=== PATIENT | female | born 1995 | race Caucasian/White ===

== ENCOUNTER 2021-05-18 18:05 | Observation (INO) | payer BC ==
--- NOTE | 2021-05-18 18:42 | P.HPOB ---
History of Present Illness H&P Date: 05/18/21 Chief Complaint: DVT left subclavian vein: Intrauterine at 8 weeks Brooke is a 25-year-old at 8 weeks gestation who was seen in the emergency room at [facility] earlier today and diagnosed with a subclavian vein deep vein thrombosis. She relates that she has had the pain in her left axilla/armpit area since Saturday. The pain started acutely and was quite severe worse with movement but initially she didn't notice any temperature changes or skin changes. However, over the last couple days she started noticing skin change and temperature change. She had talked to our office who advised her earlier to go to the emergency room or see her primary care provider for the armpit pain but she did not go until today. She called me to let me know the results of the emergency room visit and I advised her to come to 40 once we can do a more thorough evaluation and do coagulation studies to try and help determine why she may have had this DVT. 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 There is no other family history or history within her medical past that would explain why she would have a DVT. She does know she has never been on control pills and therefore this may be some type of familial or inherited disorder that may be better defined once the lab work is back. She was started on Lovenox weight-based 1 mg/kg subcu every 12 at [place] and she received 1 dose of same. We will consult hematology for other recommendations. This may very well be an appropriate option until the clot has dissipated eye. I did inform her that she would be on some type of anticoagulant throughout the and likely for up to 3 months after the . She will also need to likely see maternal medicine but that is some thickening be arranged moving forward. She has had no ultrasounds during the thus far so we will obtain an ultrasound to verify viability. Should that be a nonviable this will also allow us to do some type of thrombolytic therapy if needed to help resolve the deep vein thromboses. We'll also were a chest x-ray to verify no bony abnormalities that night be occluding or pinching her subclavian vein. I did speak with both she and her at length on my concerns and they've agreed for admission through [facility] and if we are able to feel comfortable with her anticoagulation status likely be able to be discharged tomorrow pending hematology consultation. All of the questions are answered for her at this time. I did review the ultrasound report from [facility] which states that they could see a clot in the deep vein of the subclavian and therefore at this time no further radiologic studies regarding this will be ordered. On physical exam vital signs are stable and afebrile. There is a proximally 10 mmHg increase in her blood pressure from left side to right side. She is mildly tachycardic with heart rate in the 1 teens. Her heart is regular, lungs are clear, extremities are without pain other than the left upper extremity which is colder to the touch all the way from her armpit down to her fingers as well as blanched in the skin. Assessment 8 week with deep vein thrombosis of the left subclavian vein Plan hematology consultation #2 chest x-ray for evaluation of bony prominences #3 ultrasound of the fetus to verify viability number for continued anticoagulation #5 laboratory studies including protein C and S, factor V Leiden, anti-thrombin 3, at all. Exam Osteopathic Statement: *. No significant issues noted on an osteopathic structural exam other than those noted in the History and Physical/Consult.
--- NOTE | 2021-05-18 20:23 | P.CONS ---
History of Present Illness - Reason for Consult Consult date: 05/18/21 Left subclavian DVT in first trimester - History of Present Illness The patient is a 25-year-old white female, with no prior known medical problems. The patient is in her eighth week of , with her LMP being in 02/14. She noted some pain and swelling in her left upper extremity, about 4 days ago. He stated that this was aching in nature, and impeded her in working with her left arm. Over the last day, she noted some dusky discoloration of the left upper extremity and warmth. She therefore went into the emergency room at [facility], with Dopplers showing left subclavian DVT. The patient was then transferred here and evaluated by STAFF REGISTERED NURSE, with consult placed. The patient denied any prior history of arterial or venous thrombosis. No history of any miscarriages. She states that she was told that her sister had a seizure in transfer worker that was due to a clot with testing apparently showing some genetic condition. However she is not aware of any further details. No history of any unusual bleeding or bruising previously. She denied using any hormonal contraception prior to this . She denied any history of coronavirus infection. Review of Systems Constitutional: Denies chills, Denies fever Eyes: denies blurred vision, denies pain Ears: deny: decreased hearing, ear discharge, earache, tinnitus Ears, nose, mouth and throat: Denies headache, Denies sore throat Cardiovascular: Denies chest pain, Denies shortness of breath Respiratory: Denies cough Gastrointestinal: Denies abdominal pain, Denies diarrhea, Denies nausea, Denies vomiting Genitourinary: Denies dysuria, Denies hematuria Menstruation: Reports as per HPI, Reports amenorrhea Musculoskeletal: Reports as per HPI, Reports limitation of motion Integumentary: Reports color changes, Reports darkening of skin Neurological: Denies numbness, Denies weakness Psychiatric: Denies anxiety, Denies depression Endocrine: Denies fatigue, Denies weight change Hematologic/Lymphatic: Reports as per HPI Past Medical History History of Any Multi-Drug Resistant Organisms: None Reported Smoking Status: Never smoker Medications and Allergies Home Medications Medication Instructions Recorded Confirmed Type Enoxaparin [Lovenox] 85 mg SQ Q12H 05/18/21 05/18/21 History Pnv No.95/Ferrous Fum/Folic AC 1 each PO DAILY 05/18/21 05/18/21 History [ Multivitamin Tablet] Allergies Allergy/AdvReac Type Severity Reaction Status Date / Time amoxicillin Allergy Rash/Hives Verified 05/18/21 18:44 Physical Exam Vitals: Intake and Output 05/18/21 05/18/21 05/18/21 06:59 14:59 22:59 Other: Weight 85.729 kg - Constitutional General appearance: no acute distress - EENT Eyes: EOMI, PERRLA ENT: hearing grossly normal, normal oropharynx - Neck Neck: no lymphadenopathy Thyroid: bilateral: normal size - Respiratory Respiratory: bilateral: CTA - Cardiovascular Rhythm: regular Heart sounds: normal: S1, S2 - Gastrointestinal General gastrointestinal: normal bowel sounds, soft - Integumentary Mildly dusky coloration of left lower extremity - Neurologic Neurologic: CNII-XII intact - Musculoskeletal Left upper Extremity circumference Greater than right. Strength is normal. Radial pulses intact - Psychiatric Psychiatric: A&O x's 3, appropriate affect Results Comments: Left upper extremity Doppler result as noted in OB H&P Actual study report requested from [facility] Assessment and Plan (1) DVT (deep vein thrombosis) in Narrative/Plan: The patient is Presenting with left subclavian deep vein thrombosis in the first trimester of her first . She has no evidence of any vascular compromise. She has no signs or symptoms concerning for pulmonary embolus. - Case was discussed in detail with STAFF REGISTERED NURSE. It was recommended that the patient be started on treatment with Lovenox for dose, 1 mg/kg subcu every 12 hours. She can be discharged on the same. She can be reevaluated outpatient in about 5-6 weeks and doing well could potentially be switched to a 1.5 mg/kg subcu daily dose for convenience. - We discussed the choice of anticoagulant, and rationale for the same with the patient. - DVT during would typically be considered a provoked event. Therefore a limited duration of anticoagulation would be recommended usually. At this time the plan would be to anticoagulate for about 6-8 weeks postdelivery at least. - While would be considered a provoking factor, upper extremity DVT in the first trimester would be quite unusual to be caused by alone. Therefore this raises the possibility of an underlying predisposition. The family history is overall nonspecific. However based on her history it is quite reasonable to consider hypercoagulable workup. Several tests in this regard have been ordered. The patient was advised that the results will not change her current management, but may have implications for the future, especially for her family if she is found to have a genetic predisposition. - Okay to discharge from our standpoint whenever cleared by Dr. Marshall Current Visit: Yes Status: Acute Code(s): O22.30 - DEEP PHLEBOTHROMBOSIS IN , UNSPECIFIED TRIMESTER SNOMED Code(s): 10618854
--- NOTE | 2021-05-18 20:42 | US ---
EXAMINATION TYPE: Transabdominal DATE OF EXAM: 05/18/2021 8:13 PM COMPARISON: NONE CLINICAL HISTORY: viability (mom has DVT) need to assess for treatme. Viability, mom has DVT within l eft arm. . EXAM PERFORMED: Transabdominal (TA) EXAM MEASUREMENTS: GESTATIONAL AGE / DATING Physician Established: Not yet established. Dates by LMP: ( 8 weeks/1 day) EDC: 12/27/2021 Dates by First Scan: This is first scan. Dates by Current Scan for: (7 weeks/4 days) EDC: 12/31/2021 MATERNAL ANATOMY Uterus: 9.7 x 6.3 x 5.5 cm. Anteverted. Possible septate or bicornuate uterus? Hyperechoic area visua lized toward the right of uterus. Right Ovary: 3.9 x 1.7 x 1.6 cm. Left Ovary: 2.3 x 1.7 x 2.0 cm. Post CDS / Adnexa: Appear wnl. Presence of free fluid: None seen. Presence of corpus luteal cyst: Not seen. Presence of subchorionic bleed: Not seen. GESTATION / SURVEY CRL: 1.31 cm. (7 weeks/4 days) Yolk Sac (normal less than 6mm): 3 mm. Heart Rate: 166 bpm Rhythm: Normal IUP: Viable IUP Date of LMP: 03/22/2021 Beta HcG (if available): Not available. Exam slightly limited due to body habitus and early gestation. IMPRESSION: The ultrasound gestational age is 7 weeks and 4 days. Possible bicornuate uterus.
--- NOTE | 2021-05-18 20:45 | XR ---
EXAMINATION TYPE: XR chest 2V DATE OF EXAM: 05/18/2021 COMPARISON: NONE HISTORY: Left arm blood clot TECHNIQUE: 2 views FINDINGS: There is no heart failure nor confluent pneumonic infiltrate. There is slight blunting left costophrenic angle. There are no hilar masses. Exam limited by patient's size. Bony thorax is intact . IMPRESSION: There is some minimal pleural reaction left lung base. Normal heart.
[2021-05-19] MEDS: ENOXAPARIN 80 MG/0.8 ML SYRINGE SQ SCH ×2 (00:03→10:18)
[2021-05-19 04:55] LABS: Cardiolipin Ab IgG Interp NEGATIVE (NEGATIVE); Cardiolipin Ab IgM Interp NEGATIVE (NEGATIVE); Cardiolipin IgM Antibody <1.5 U/mL
[2021-05-19 08:16] VITALS: BP 123/75; PULSE 97; RESP 14; TEMP 98.5
[2021-05-19] MEDS ORDERED: PRENATAL VIT-IRON-FOLIC ACID 1 EACH CAP PO SCH (09:00)
--- NOTE | 2021-05-19 11:01 | P.DS ---
Providers Date of admission: 05/18/21 19:45 Expected date of discharge: 05/19/21 Attending physician: Elan Marshall Consults: 05/18/21 19:00 Consult Physician Urgent Consulting Provider: Georgi Paulino Consult Reason/Comments: dvt left subclavian vein: 8 weeks Do you want consulting provider notified?: Already Contacted Primary care physician: Stated None Hospital Course: This is a 25-year-old female 1 para 0 at approximately 8 weeks who presented with a left subclavian DVT diagnosed at [facility]. Please see history and physical for details of patient's admission. She has been seen in consultation by Dr. Paulino and has been started on Lovenox. Her has been instructed on how to give the Lovenox to her. She has a 10 day supply currently. She does have an appointment with Dr. Welch this . All questions are answered. The patient is instructed to call the office or return to the hospital if any severe symptoms. Patient Condition at Discharge: Stable Plan - Discharge Summary Discharge Rx Participant: No New Discharge Prescriptions: No Action Enoxaparin [Lovenox] 85 mg SQ Q12H Pnv No.95/Ferrous Fum/Folic AC [ Multivitamin Tablet] 1 each PO DAILY Discharge Medication List Enoxaparin [Lovenox] 85 mg SQ Q12H 05/18/21 [History] Pnv No.95/Ferrous Fum/Folic AC [ Multivitamin Tablet] 1 each PO DAILY 05/18/21 [History] Follow up Appointment(s)/Referral(s): Georgi Paulino MD [STAFF PHYSICIAN] - 6 Weeks (pls have pt call office [phone] or [phone] for appt ( to f/u in 6 wks) on 05/22/21) Sharath Welch MD [STAFF PHYSICIAN] - 05/25/21 Discharge Disposition: HOME SELF-CARE
[2021-05-22 12:25] LABS: APTT 71 Sec(s) (<43); APTT 1:1 Mix 59 Sec(s) (<43); DRVVT 1:1 Mix 44 Sec(s) (<44); Dilute Russell Viper Venom 56 Sec(s) (<44); Hexagonal Phase Neutralization Positive (Negative)
[2021-05-23 10:40] LABS: Anti-Thrombin III Activity 96 % (79-109); Protein C (Activity) 90 % (71-138)
== END 2021-05-19 11:15 | disposition home or self-care (01) ==
LOC: FBPOP 18:05 → 4FBP 19:45
PROVIDERS: ADMIT Obstetrics & Gynecology; ATTEND Obstetrics & Gynecology
DX: O22.31 Deep phlebothrombosis in pregnancy, first trimester (principal); I82.B12 Acute embolism and thrombosis of left subclavian vein; Z3A.08 8 weeks gestation of pregnancy; Z20.822 Contact with and (suspected) exposure to COVID-19; Z88.0 Allergy status to penicillin
CPT/HCPCS: 99213; 96372; 85303; 85306; 86146; 85730; 85613; 85732; 85598; 85300; 81241; 86147; 87635; 71046; 76801; G0378; J1650; S0197

== ENCOUNTER → 2021-08-03 | Outpatient (CLI) | payer BC ==
--- NOTE | 2021-08-03 09:05 | US ---
EXAMINATION TYPE: US venous doppler duplex UE LT DATE OF EXAM: 08/03/2021 COMPARISON: NONE CLINICAL HISTORY: M79.622 PAIN IN LT UPPER LIMB. History of Prior DVT in left arm. SIDE PERFORMED: Left arm Left Arm: Negative for DVT No DVT seen at this time. IMPRESSION: Grayscale, color doppler, spectral doppler imaging performed of the deep veins of the upper extremiti es. There is normal flow, compressibility and vascular waveforms.
== END | disposition home or self-care (01) ==
LOC: RADUSWWP 08:00
PROVIDERS: ATTEND Internal Medicine Hematology & Oncology
DX: I82.729 Chronic embolism and thrombosis of deep veins of unspecified upper extremity (principal); M79.622 Pain in left upper arm

== ENCOUNTER 2021-12-20 06:00 | Inpatient (IN) | payer BC ==
[2021-12-20] MEDS ORDERED: DINOPROSTONE 10 MG INSERT.ER VAGINAL ONE (16:10)
[2021-12-20 16:49] LABS: INR 0.9 (<1.2); Partial Thromboplastin Time 23.5 sec (22.0-30.0)
[2021-12-20 17:23] LABS: Basophils % (A) 0 %; Eosinophils # (A) 0.1 k/uL (0-0.7); Eosinophils % (A) 0 %; HCT 34.5 % (34.0-46.0); HGB 11.1 gm/dL (11.4-16.0); Lymphocytes # (A) 1.9 k/uL (1.0-4.8); Lymphocytes % (A) 15 %; MCH 29.6 pg (25.0-35.0); MCHC 32.3 g/dL (31.0-37.0); MCV 91.9 fL (80.0-100.0); Mean Platelet Volume 11.1; Monocytes # (A) 0.8 k/uL (0-1.0); Monocytes % (A) 7 %; Neutrophils # (A) 9.6 k/uL (1.3-7.7); Neutrophils % (A) 77 %; Platelet Count 138 k/uL (150-450); RBC 3.75 m/uL (3.80-5.40); RDW 13.5 % (11.5-15.5); WBC 12.6 k/uL (3.8-10.6)
--- NOTE | 2021-12-20 17:39 | P.HPOB ---
History of Present Illness H&P Date: 12/20/21 Chief Complaint: History of subclavian thrombosis for induction of labor This patient is a pleasant 26-year-old 1 para 0 female estimated date of confinement 12/29/2021 estimated gestational age 38-5/7 weeks who presents for delivery secondary to history of subclavian thrombosis and anticoagulation therapy. Patient's history is such that she developed a subclavian DVT and the early first trimester. She was subsequently seen by Dr. Paulino and placed on full anticoagulation with Lovenox. She also saw maternal medicine and recommendations were to convert to heparin at 36 weeks with delivery after 37-38 weeks. Patient is discontinued her heparin approximately 24 hours ago. She was converted to low-dose heparin 3 times a day at 36 weeks. Patient's otherwise has been uncomplicated. Patient's cervix is unfavorable therefore we'll proceed with two-stage induction at this time. Review of Systems Gastrointestinal: Reports indigestion Genitourinary: Reports Menstruation: Reports amenorrhea Past Medical History Past Medical History: Deep Vein Thrombosis (DVT) Additional Past Medical History / Comment(s): Left subclavian thrombus History of Any Multi-Drug Resistant Organisms: None Reported Additional Past Surgical History / Comment(s): wisdom tooth Past Anesthesia/Blood Transfusion Reactions: No Reported Reaction Past Psychological History: No Psychological Hx Reported Smoking Status: Never smoker Past Alcohol Use History: None Reported Past Drug Use History: None Reported - Past Family History Mother Family Medical History: Thyroid Disorder Medications and Allergies Home Medications Medication Instructions Recorded Confirmed Type Pnv No.95/Ferrous Fum/Folic AC 1 each PO DAILY 05/18/21 05/18/21 History [ Multivitamin Tablet] Heparin Sodium,Porcine [Heparin Q8HR 12/20/21 History Sodium] Allergies Allergy/AdvReac Type Severity Reaction Status Date / Time amoxicillin Allergy Rash/Hives Verified 12/20/21 16:10 Exam Vital Signs Temp Pulse Resp BP Pulse Ox 12/20/21 15:55 98.3 F 83 16 133/83 98 Intake and Output 12/20/21 12/20/21 12/20/21 06:59 14:59 22:59 Other: Weight 93.44 kg - OBG Physical Exam Abdomen: bowel sounds normal, no diffuse tenderness, no bruit present, no guarding noted, no hepatomegaly, no splenomegaly, no mass Vulva: both: normal Vagina: normal moisture, no discharge Cervix: no lesion (Cervix is closed and thick), no discharge Uterus: enlarged (Fundal height 39 cm) Results labs show she is A positive, rubella immune, RPR nonreactive, hepatitis B is negative, HIV is nonreactive, Glucola was normal, group B strep was negati ve, most recent ultrasound showed 6 lbs. 4 oz. that was on November 28. Result Diagrams: 12/20/21 16:20 Abnormal Lab Results - Last 24 Hours (Table) 12/20/21 Range/Units 16:20 WBC 12.6 H (3.8-10.6) k/uL RBC 3.75 L (3.80-5.40) m/uL Hgb 11.1 L (11.4-16.0) gm/dL Plt Count 138 L (150-450) k/uL Neutrophils # 9.6 H (1.3-7.7) k/uL Assessment and Plan Assessment: This is a pleasant 26-year-old 1 para 0 female 38-5/7 weeks who presents to labor and delivery for induction of labor secondary to history of subclavian vein thrombosis during this . Patient has stopped her heparin approximately 24 hours ago and coagulation factors were normal. Plan is to place Cervidil and proceed with induction of labor. In discussion with maternal- medicine and hematology, plan is for anticoagulation with subcu Lovenox 12 hours if a vaginal delivery or 24 hours if a . This point we're anticipating a vaginal delivery. (1) 38 weeks gestation of Current Visit: Yes Status: Acute Code(s): Z3A.38 - 38 WEEKS GESTATION OF SNOMED Code(s): 23358711 (2) DVT (deep vein thrombosis) in Current Visit: No Status: Acute Code(s): O22.30 - DEEP PHLEBOTHROMBOSIS IN , UNSPECIFIED TRIMESTER SNOMED Code(s): 75182156
[2021-12-21] MEDS: BUTORPHANOL 1 MG/ML 1 ML VIAL IV PRN ×2 (01:17→05:08)
[2021-12-21] MEDS ORDERED: METHYLERGONOVINE 0.2 MG/ML 1 ML AMP IM PRN (04:37)
[2021-12-21] MEDS ORDERED: LIDOCAINE 0.5% (PF) 5 MG/ML (50 ML SDV) SQ PRN (04:37)
[2021-12-21] MEDS ORDERED: CARBOPROST TROMETHAMINE 250 MCG/ML 1 ML AMP IM PRN (04:37)
[2021-12-21] MEDS ORDERED: TERBUTALINE 1 MG/ML VIAL SQ PRN (04:37)
[2021-12-21] MEDS ORDERED: OXYTOCIN 30 UNITS/500 ML NS 30 UNIT in SALINE 1 500ML.BAG IV SCH ×2 (04:37→23:45)
[2021-12-21] MEDS ORDERED: OXYTOCIN 10 UNIT/ML 1 ML VIAL IM PRN (04:37)
[2021-12-21] MEDS: LACTATED RINGERS 1,000 ML IV SCH ×4 (05:11→22:51)
--- NOTE | 2021-12-21 06:01 | P.PN ---
Progress Note - Text Progress Note Date: 12/21/21 Cervix is 2 cm and soft and -2 station. heart tones are category 1. Artificial rupture membranes was done for clear fluid. Plan is Pitocin induction of labor and anticipate vaginal delivery
[2021-12-21] MEDS ORDERED: ROPIVACAINE 100 MG, fentaNYL (PF). 200 MCG in SODIUM CHLORIDE 0.9% 76 ML EPIDURAL ONE (10:01)
[2021-12-21] MEDS ORDERED: CITRIC ACID-SODIUM CITRATE 15 ML CUP PO ONE (22:32)
--- NOTE | 2021-12-21 22:42 | P.PN ---
Progress Note - Text Progress Note Date: 12/21/21 Patient's progress to 9 cm without further dilation and now cervix is swelling. Despite adequate labor and has been no further significant change therefore after discussion with the patient and her were going to proceed with section for delivery. Patient understands surgery and risks. Consent is obtained.
[2021-12-21] MEDS ORDERED: ONDANSETRON 4 MG/2 ML VIAL ONE (22:57)
[2021-12-21] MEDS ORDERED: SODIUM CHLORIDE 0.9% 100 ML BAG ONE (22:57)
[2021-12-21] MEDS ORDERED: ceFAZolin 1,000 MG VIAL ONE (22:57)
[2021-12-21] MEDS ORDERED: MORPHINE SULFATE (PF) 0.3 MG/0.3 ML SYR ONE (22:57)
[2021-12-21] MEDS ORDERED: OXYTOCIN 30 UNITS/500 ML NS BAG IV ONE (22:57)
[2021-12-21] MEDS ORDERED: ZOLPIDEM 5 MG TAB PO PRN (23:46)
[2021-12-21] MEDS ORDERED: METOCLOPRAMIDE 5 MG/ML 2 ML VIAL IVP PRN (23:46)
[2021-12-21] MEDS ORDERED: ONDANSETRON 4 MG/2 ML VIAL IVP PRN (23:46)
[2021-12-21] MEDS ORDERED: LANOLIN CREAM 5 GM TUBE TOPICAL PRN (23:46)
[2021-12-21] MEDS ORDERED: SIMETHICONE 80 MG CHEWABLE PO PRN (23:46)
[2021-12-21] MEDS ORDERED: diphenhydrAMINE 50 MG/ML 1 ML VIAL IVP PRN (23:46)
[2021-12-21] MEDS ORDERED: diphenhydrAMINE 25 MG CAP PO PRN (23:46)
[2021-12-21] MEDS ORDERED: NALOXONE 0.4 MG/ML 1 ML VIAL IV PRN (23:46)
--- NOTE | 2021-12-22 00:07 | P.OP ---
Date of Procedure: 12/21/21 Preoperative Diagnosis: #1: 38-5/7 week intrauterine . #2: History of subclavian vein thrombosis #3: Cephalopelvic dystocia Postoperative Diagnosis: Same Procedure(s) Performed: Primary low transverse section Anesthesia: spinal Surgeon: Sharath Welch Dandy Tender #1: Ramya Teixeira Estimated Blood Loss (ml): 670 Pathology: other (Placenta) Condition: stable Disposition: floor Indications for Procedure: Please see dictated H&P for intimate details of this patient's admission. Brief summary this is a pleasant 26-year-old 1 para 0 female 38-5/7 weeks gestation admitted for induction of labor due to subclavian vein thrombosis this . Patient is admitted last evening and has Cervidil placed.'s morning patient was 1-2 cm dilated has artificial rupture membranes for clear fluid. Labor is induced with Pitocin per protocol. She progresses quite slowly but does get to 9 cm dilated at this time the anterior cervix. The head does not move beyond 0 to +1 station. At this time patient's also having a lot of vulvar swelling. I discussed with the patient and her whether we should continue with labor proceed with delivery by section and wishes to proceed by section. Patient does understand the surgery and risks and risks of infection, bleeding, possible injury bowel, bladder, vessels, and/or other organs. All the patient's questions are answered written consent is obtained. Operative Findings: This is a vigorous viable male Apgars 9 and 10 delivery time was 2315 hrs. Description of Procedure: This patient has a Mosqueda catheter placed to straight drain. She is subsequently taken to the operating room where the epidural catheter is removed and spinal anesthetic is administered without incident. With an adequate level of anesthesia she has abdominal prep and drape. Scalpels and taken Pfannenstiel skin incision is then made. A second scalpel is taken down the fascia the fascia scored with a knife. Fascial incision extended bilaterally using the Mcfarland scissors. Fascia is dissected off the rectus muscles sharply. Rectus muscles are the peritoneum identified and entered sharply. Peritoneal incision extended superior and inferior without difficulty. Bladder blade is then placed. Bladder peritoneum was taken sharply off the lower uterine segment. Scalpels and taken a low transverse uterine incision is made. Using a hemostat I into the uterine cavity bluntly and there is loss of clear fluid. This incision is extended bluntly. is felt felt to be left occiput transverse. 's head was guided through the incision and delivered with fundal pressure. Mouth and nares are bulb suctioned. Is no evidence of a nuchal cord. With more fundal pressure deliver the rest this infant's body. This is a vigorous viable male infant Apgars are 9 and 10 delivery time was 2315 hrs. After delivery of the infant the umbilical cord is doubly clamped and cut appears to be trivascular. The placenta is then manually extracted intact. Uterus is then externalized and the uterine incision is demarcated with Monsalve clamps. Uterine incision is then closed using 0 Vicryl running locked fashion 2 layers. Additional [id number] stitches are placed for added hemostasis. Bladder peritoneum was then closed using a 3-0 Vicryl. Excess fluid is removed from the abdomen and pelvis. Uterus placed back into the abdomen. The parietal peritoneum was then identified and closed using 0 Vicryl running fashion. Rectus muscles reapproximated in 0 Vicryl interrupted fashion. Fascial incision is then closed using a 0 PDS running fashion. Fascial incision is intact and hemostatic. Subcutaneous tissues and closed using a 3-0 Vicryl. Skin is and closed using wanda. All counts are correct 3. There are no complications. Infant and mother are stable and taken to the birthing suite in satisfactory condition.
[2021-12-22] MEDS: IBUPROFEN 600 MG TAB PO SCH ×4 (02:16→23:47)
[2021-12-22] MEDS: METHYLERGONOVINE 0.2 MG TAB PO SCH ×3 (04:11→15:56)
[2021-12-22] MEDS: ACETAMINOPHEN TAB 500 MG TAB PO SCH ×2 (04:11→18:19)
--- NOTE | 2021-12-22 05:50 | P.PNOBGPC ---
Subjective - Subjective Patient reports: Reports appetite normal, Reports voiding normally, Reports pain well controlled, Reports ambulating normally : doing well Objective - Vital Signs Latest vital signs: Vital Signs Temp Pulse Resp BP Pulse Ox 12/22/21 04:00 98.1 F 83 16 104/56 12/22/21 02:15 92 16 133/83 98 12/22/21 01:45 67 16 129/73 99 12/22/21 01:15 67 16 140/69 98 12/22/21 01:00 71 18 139/65 98 12/22/21 00:45 82 18 146/61 97 12/22/21 00:30 87 16 141/56 98 12/22/21 00:15 97.4 F L 82 16 129/79 98 Intake and Output 12/21/21 12/21/21 12/22/21 14:59 22:59 06:59 Output Total 567 634 4186 Balance -400 -500 -1570 Output: Urine 400 500 800 Straight 500 Estimated Blood Loss 630 Output, Quantitative 140 Blood Loss Other: Voiding Method Indwelling Catheter - Exam Lungs: bilateral: normal Chest: Normal S1, Normal S2 Extremities: Present: normal Abdomen: Present: normal appearance, soft. Absent: distention, tenderness Incision: Present: normal, dry, intact Uterus: Present: normal, firm Assessment and Plan Assessment: Postoperative day #1. Vital signs are stable she is afebrile. Uterus is firm nontender and she is having normal lochia. CBC is pending. Plan today is to discontinue her catheter, encourage ambulation, advance patient's diet, check a CBC, and continue routine postoperative care. I did discuss with the special makeup fx artist instructor yesterday plan is to restart her Lovenox 80 mg subcu twice a day. Per current recommendations await at least 24 hours that she's had a therefore we'll start this at 0400 hrs. tomorrow morning and then change to a 8 AM 8 PM schedule. Patient's bleeding at this time is normal. (1) 38 weeks gestation of Current Visit: Yes Status: Acute Code(s): Z3A.38 - 38 WEEKS GESTATION OF SNOMED Code(s): 13620508 (2) DVT (deep vein thrombosis) in Current Visit: No Status: Acute Code(s): O22.30 - DEEP PHLEBOTHROMBOSIS IN , UNSPECIFIED TRIMESTER SNOMED Code(s): 15623416
[2021-12-22 07:03] LABS: Basophils % (A) 0 %; Eosinophils # (A) 0.1 k/uL (0-0.7); Eosinophils % (A) 0 %; HCT 34.9 % (34.0-46.0); HGB 11.3 gm/dL (11.4-16.0); Lymphocytes # (A) 1.5 k/uL (1.0-4.8); Lymphocytes % (A) 6 %; MCH 29.8 pg (25.0-35.0); MCHC 32.4 g/dL (31.0-37.0); MCV 91.9 fL (80.0-100.0); Monocytes # (A) 1.2 k/uL (0-1.0); Monocytes % (A) 5 %; Neutrophils # (A) 22.6 k/uL (1.3-7.7); Neutrophils % (A) 88 %; Platelet Count 136 k/uL (150-450); RDW 13.5 % (11.5-15.5); WBC 25.6 k/uL (3.8-10.6)
[2021-12-22 07:17] LABS: Mean Platelet Volume 11.1
[2021-12-22] MEDS: SENNOSIDES-DOCUSATE SODIUM 1 EACH TAB PO SCH ×2 (08:17→20:43)
--- NOTE | 2021-12-22 10:06 | P.PN ---
Progress Note - Text Progress Note Date: 12/22/21 Postop day 1 from under spinal anesthesia with intrathecal morphine given for postop pain management. Patient is doing well. Pain is well controlled. On visual analog scale 4/10 Mild itching present No nausea or vomiting reported. No Headache or weakness and numbness in the legs. No complications from spinal anesthesia.
[2021-12-23] MEDS: LACTATED RINGERS 1,000 ML IV SCH (00:48)
[2021-12-23] MEDS: ENOXAPARIN 80 MG/0.8 ML SYRINGE SQ SCH ×2 (03:55→20:18)
[2021-12-23] MEDS: ACETAMINOPHEN TAB 500 MG TAB PO SCH ×5 (03:58→20:18)
[2021-12-23 05:37] LABS: Basophils % (A) 0 %; Eosinophils # (A) 0.4 k/uL (0-0.7); Eosinophils % (A) 2 %; HCT 32.4 % (34.0-46.0); HGB 10.7 gm/dL (11.4-16.0); Lymphocytes # (A) 2.2 k/uL (1.0-4.8); Lymphocytes % (A) 14 %; MCH 31.1 pg (25.0-35.0); MCHC 32.9 g/dL (31.0-37.0); MCV 94.4 fL (80.0-100.0); Mean Platelet Volume 10.9; Monocytes # (A) 0.8 k/uL (0-1.0); Monocytes % (A) 5 %; Neutrophils # (A) 12.2 k/uL (1.3-7.7); Neutrophils % (A) 77 %; Platelet Count 140 k/uL (150-450); RBC 3.44 m/uL (3.80-5.40)
[2021-12-23] MEDS: IBUPROFEN 600 MG TAB PO SCH ×3 (06:33→23:25)
[2021-12-23] MEDS: SENNOSIDES-DOCUSATE SODIUM 1 EACH TAB PO SCH ×2 (08:40→21:33)
--- NOTE | 2021-12-23 11:21 | P.PNOBGPC ---
Subjective - Subjective Principal diagnosis: Status post primary low transverse section postoperative day #2 Interval history: Patient is doing well. She is ambulating. She is passing flatus and bowel movement. Her pain is fairly well controlled. Lochia has been minimal. She is breast-feeding. Patient reports: Reports appetite normal, Reports voiding normally, Reports pain well controlled, Reports ambulating normally : doing well, nursing well Objective - Vital Signs Latest vital signs: Vital Signs Temp Pulse Resp BP Pulse Ox 12/23/21 08:36 98.0 F 87 16 117/70 97 12/23/21 00:00 98.3 F 148 H 55 H 12/22/21 20:00 97.5 F L 65 16 118/85 100 12/22/21 16:00 98.3 F 89 16 126/82 12/22/21 12:00 98.2 F 88 16 128/72 Intake and Output 12/22/21 12/23/21 12/23/21 22:59 06:59 14:59 Intake Total 960 Balance 960 Intake: Oral 960 Other: Voiding Method Indwelling Catheter # Voids 1 2 - Exam Extremities: Present: normal. Absent: tenderness, edema Abdomen: Present: normal appearance, soft (Positive bowel sounds 4). Absent: distention, tenderness Incision: Present: normal, dry, intact. Absent: erythematous Uterus: Present: normal, firm. 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 Continue Lovenox. Bleeding has been minimal.
[2021-12-24] MEDS: IBUPROFEN 600 MG TAB PO SCH ×2 (05:55→08:40)
[2021-12-24] MEDS: ENOXAPARIN 80 MG/0.8 ML SYRINGE SQ SCH (08:39)
[2021-12-24] MEDS: SENNOSIDES-DOCUSATE SODIUM 1 EACH TAB PO SCH (08:40)
[2021-12-24 08:52] VITALS: RESP 16
--- NOTE | 2021-12-24 10:35 | P.DS ---
Providers Date of admission: 12/20/21 15:51 Expected date of discharge: 12/24/21 Attending physician: Sharath Welch Primary care physician: Stated None Hospital Course: This is a 26 y.o. female 1 para 0 at 38-5/7 weeks, who presented for induction of labor. She ended up with a primary low transverse section on 12/21/2021 and delivered a viable male infant with scores of 9 at 1 minute and 10 at 5 minutes and weight of 7 lbs. 15 oz. Please see history and physical and operative note for details of patient's admission. Her course has been essentially uncomplicated. She was restarted on William enox due to history of a subclavian DVT. She has had no increase in bleeding since restarting. Lochia is minimal, pain is well-controlled. She is passing flatus and bowel movement. She is breast-feeding. Vital signs are stable. Abdomen is soft with fundus firm and nontender. Bowel sounds are present 4. Incision is clean dry and intact. Extremities show negative Homans. Impression is status post primary low transverse section postoperative day #3. Plan is to discharge home today. Routine postoperative and instructions are given. She will continue her Lovenox as she did prior to . She has been given a prescription for ibuprofen and oxycodone by Dr. Welch. She is advised to follow-up in the office in approximately one week for a postoperative check and in 6 weeks for a check. She is advised to call the office if she has any further questions or concerns prior to her point in time. Procedures: Cervidil cervical ripening Oxytocin induction of labor Primary low transverse section on 12/21/2021 Patient Condition at Discharge: Stable Plan - Discharge Summary New Discharge Prescriptions: New oxyCODONE HCL [OxyIR] 5 mg PO Q4HR PRN #18 tab PRN Reason: Pain Scale 4 - 6 Enoxaparin [Lovenox] 80 mg SQ Q12H #1 each Ibuprofen [Motrin] 600 mg PO Q6H #30 tab No Action Pnv No.95/Ferrous Fum/Folic AC [ Multivitamin Tablet] 1 each PO DAILY Heparin Sodium,Porcine [Heparin Sodium] Q8HR Discharge Medication List Pnv No.95/Ferrous Fum/Folic AC [ Multivitamin Tablet] 1 each PO DAILY 05/18/21 [History] Heparin Sodium,Porcine [Heparin Sodium] Q8HR 12/20/21 [History] Enoxaparin [Lovenox] 80 mg SQ Q12H #1 each 12/22/21 [Rx] Ibuprofen [Motrin] 600 mg PO Q6H #30 tab 12/22/21 [Rx] oxyCODONE HCL [OxyIR] 5 mg PO Q4HR PRN #18 tab 12/22/21 [Rx] Follow up Appointment(s)/Referral(s): Sharath Welch MD [STAFF PHYSICIAN] - 02/02/22 8:45 am (Post OP appointment 12/29/21 @8:45 AM) Patient Instructions/Handouts: (DC) Activity/Diet/Wound Care/Special Instructions: No heavy lifting or strenuous activity for 6 weeks. No intercourse or anything per vagina for 6 weeks. Please call if any fever, chills, excessive vaginal bleeding, and/or abdominal pain. Discharge Disposition: HOME SELF-CARE
[2021-12-24] MEDS: ACETAMINOPHEN TAB 500 MG TAB PO SCH (13:02)
[2021-12-24 13:31] VITALS: BP 118/69; PULSE 78; TEMP 98.5
== END 2021-12-24 12:30 | disposition home or self-care (01) | DRG 788 ==
LOC: 4FBP 15:51
PROVIDERS: ADMIT Obstetrics & Gynecology; ATTEND Obstetrics & Gynecology
PROC: 3E0P7VZ Introduction of Hormone into Female Reproductive, Via Natural or Artificial Opening (ICD-10-PCS; principal; 2021-12-20)
PROC: 10D00Z1 Extraction of Products of Conception, Low, Open Approach (ICD-10-PCS; 2021-12-21)
PROC: 10907ZC Drainage of Amniotic Fluid, Therapeutic from Products of Conception, Via Natural or Artificial Opening (ICD-10-PCS; 2021-12-21)
PROC: 3E033VJ Introduction of Other Hormone into Peripheral Vein, Percutaneous Approach (ICD-10-PCS; 2021-12-21)
DX: O33.9 Maternal care for disproportion, unspecified (principal); O62.0 Primary inadequate contractions; Z86.718 Personal history of other venous thrombosis and embolism; Z88.0 Allergy status to penicillin; Z79.01 Long term (current) use of anticoagulants; Z28.310 Unvaccinated for COVID-19; Z3A.38 38 weeks gestation of pregnancy; Z37.0 Single live birth
CPT/HCPCS: 85025; 85610; 85730; 86850; 86900; 86901; 88307

== ENCOUNTER → 2023-05-22 | Outpatient (CLI) | payer BC ==
[2023-05-22 19:11] LABS: Basophils # (A) 0.06 X 10*3/uL (0.00-0.10); Basophils % (A) 0.4 %; Eosinophils # (A) 0.14 X 10*3/uL (0.04-0.35); HCT 45.1 % (37.2-46.3); HGB 14.9 g/dL (12.0-15.0); Lymphocytes # (A) 3.47 X 10*3/uL (0.90-5.00); Lymphocytes % (A) 24.5 %; MCH 29.4 pg (27.0-32.0); Monocytes # (A) 0.92 X 10*3/uL (0.20-1.00); Monocytes % (A) 6.5 %; NRBC Per 100 WBC 0 X 10*3/uL (0.00-0.01); Neutrophils # (A) 9.54 X 10*3/uL (1.80-7.70); Neutrophils % (A) 67.2 %; Platelet Count 308 X 10*3/uL (140-440); RBC 5.07 X 10*6/uL (4.10-5.20); RDW 12.2 % (11.5-14.5); WBC 14.18 X 10*3/uL (4.50-10.00)
[2023-05-22 19:54] LABS: % Iron Saturation 21.93 (12.00-45.00); ALT 26 U/L (8-44); AST 15 U/L (13-35); Albumin 4.7 g/dL (3.8-4.9); Albumin/Globulin Ratio 1.42 Ratio (1.60-3.17); Alkaline Phosphatase 64 U/L (41-126); Calcium 10.2 mg/dL (8.7-10.3); Carbon Dioxide 23.7 mmol/L (21.6-31.8); Chloride 103 mmol/L (96-109); Ferritin 61.5 ng/mL (10.0-291.0); Globulin 3.3 g/dL (1.6-3.3); Glucose 78 mg/dL (70-110); Iron 82 UG/DL (50-170); Potassium 4.6 mmol/L (3.5-5.5); Sodium 138 mmol/L (135-145); Total Bilirubin 0.2 mg/dL (0.3-1.2); Total Iron Binding Capacity 374 UG/DL (228-460)
[2023-05-22 21:24] LABS: Cardiolipin Ab IgG Interp Negative (Negative); Cardiolipin Ab IgM Interp Negative (Negative); Cardiolipin IgM Antibody <1.5 U/mL; DNA Double-Stranded Negative (Negative)
== END | disposition home or self-care (01) ==
LOC: LABWHC1 14:04
PROVIDERS: ATTEND Internal Medicine Hematology
DX: I82.A22 Chronic embolism and thrombosis of left axillary vein (principal)
CPT/HCPCS: 36415; 80053; 82306; 82607; 82728; 83540; 83550; 85025; 85613; 85730; 86038; 86147; 86160; 86225

== ENCOUNTER 2024-11-14 14:01 | Inpatient (IN) | payer BC ==
[2024-11-14] MEDS ORDERED: OXYTOCIN 10 UNIT/ML 1 ML VIAL IM PRN (14:22)
[2024-11-14] MEDS ORDERED: TRANEXAMIC 1,000 MG/100ML-NACL 1,000 MG in EMPTY BAG 1 BAG IV PRN (14:22)
[2024-11-14] MEDS ORDERED: CARBOPROST TROMETHAMINE 250 MCG/ML 1 ML AMP IM PRN (14:22)
[2024-11-14] MEDS ORDERED: miSOPROStoL 200 MCG TAB PO PRN (14:22)
[2024-11-14] MEDS ORDERED: METHYLERGONOVINE 0.2 MG/ML 1 ML AMP IM PRN (14:22)
[2024-11-14] MEDS: LACTATED RINGERS 1,000 ML IV ONE (14:30)
[2024-11-14 14:47] LABS: Basophils # (A) 0.03 10*3/uL (0.00-0.10); Basophils % (A) 0.2 %; Eosinophils # (A) 0.05 10*3/uL (0.04-0.35); Eosinophils % (A) 0.4 %; HGB 10.4 g/dL (12.0-15.0); Lymphocytes # (A) 2.03 10*3/uL (0.90-5.00); Lymphocytes % (A) 14.2 %; MCH 25.9 pg (27.0-32.0); MCHC 31.5 g/dL (32.0-37.0); MCV 82.1 fL (80.0-97.0); Mean Platelet Volume 11.1 fL (9.5-12.2); Monocytes # (A) 1.16 10*3/uL (0.20-1.00); Monocytes % (A) 8.1 %; Neutrophils # (A) 10.85 10*3/uL (1.80-7.70); Platelet Count 200 10*3/uL (140-440); RBC 4.02 10*6/uL (4.10-5.20); RDW 14.9 % (11.5-14.5); WBC 14.28 10*3/uL (4.50-10.00)
[2024-11-14] MEDS: CITRIC ACID-SODIUM CITRATE 15 ML CUP PO ONE (15:00)
[2024-11-14] MEDS: LACTATED RINGERS 1,000 ML IV SCH (15:00)
[2024-11-14] MEDS: ceFAZolin 2 GM in DEXTROSE 5% IN WATER 50 ML IVPB ONE (15:00)
[2024-11-14] MEDS ORDERED: ONDANSETRON 4 MG/2 ML VIAL ONE (15:11)
[2024-11-14] MEDS ORDERED: WATER FOR INJECTION, STERILE 10 ML VIAL IV ONE (15:11)
[2024-11-14] MEDS ORDERED: MORPHINE SULFATE (PF) 0.3 MG/0.3 ML SYR ONE (15:11)
[2024-11-14] MEDS ORDERED: OXYTOCIN 30 UNITS/500 ML NS BAG IV ONE (15:11)
[2024-11-14] MEDS ORDERED: KETOROLAC 15 MG/ML 1 ML VIAL ONE (15:11)
[2024-11-14] MEDS ORDERED: ePHEDrine 50 MG/ML 1 ML VIAL ONE (15:11)
[2024-11-14] MEDS ORDERED: NALBUPHINE (ANES) 10 MG/ML - 1 ML AMP ONE (15:11)
[2024-11-14] MEDS ORDERED: PHENYLEPHRINE-0.9% NACL SYG 1,000 MCG/10 ML SYRINGE ONE (15:11)
[2024-11-14] MEDS ORDERED: SIMETHICONE 80 MG CHEWABLE PO PRN (16:11)
[2024-11-14] MEDS ORDERED: LANOLIN CREAM 1 GM TUBE TOPICAL PRN (16:11)
[2024-11-14] MEDS ORDERED: NALOXONE 0.4 MG/ML 1 ML VIAL IV PRN (16:11)
[2024-11-14] MEDS ORDERED: diphenhydrAMINE 25 MG CAP PO PRN (16:11)
[2024-11-14] MEDS ORDERED: METOCLOPRAMIDE 5 MG/ML 2 ML VIAL IVP PRN (16:11)
[2024-11-14] MEDS ORDERED: diphenhydrAMINE 50 MG CAP PO PRN (16:11)
[2024-11-14] MEDS ORDERED: ZOLPIDEM 5 MG TAB PO PRN (16:11)
[2024-11-14] MEDS ORDERED: diphenhydrAMINE 50 MG/ML 1 ML VIAL IVP PRN ×2 (16:11)
[2024-11-14] MEDS ORDERED: OXYTOCIN 30 UNITS/500 ML NS 30 UNIT in SALINE 1 500ML.BAG IV SCH (16:15)
--- NOTE | 2024-11-14 16:19 | P.HPOB ---
History of Present Illness H&P Date: 11/14/24 Chief Complaint: 38 and 1 sevenths weeks, previous section, requesting repeat, labo The patient is a 29-year-old 2 para 1-0-0-1 admitted at 39 and 1 sevenths weeks as established by last menstrual period and confirmed by 9-week ultrasound. She is admitted in active labor with all signs reassuring, category 1 heart rate tracing. She carries a history of a previous section and has requested repeat with intraoperative bilateral salpingectomy. She additionally has a history of deep vein thrombosis for which she has been prophylaxed with Lovenox 40 mg SQ daily, last dose taken yesterday morning. She was additionally found to have polyhydramnios in the third trimester and had weekly reassuring testing since the diagnosis. Group B strep status is negative. Obstetrical history: 2 para 1-0-0-1 with 1 term section. Current statistics are listed in history of present illness. EDC 11/27/2024 was established by last menstrual period and confirmed by 8-week ultrasound. Laboratory workup demonstrates a blood type of A+ with a negative antibody screen. Rubella status is immune. The remainder of the laboratory workup was within normal limits. Early Glucola was normal as was second trimester Glucola. Group B strep status is negative. Gynecologic history: Unremarkable with no history of any infections to include STDs. Review of Systems Review of systems is confined to history of present illness. Past Medical History Past Medical History: Deep Vein Thrombosis (DVT) Additional Past Medical History / Comment(s): Left subclavian thrombus History of Any Multi-Drug Resistant Organisms: None Reported Additional Past Surgical History / Comment(s): wisdom tooth Past Anesthesia/Blood Transfusion Reactions: No Reported Reaction Smoking Status: Never smoker - Past Family History Mother Family Medical History: Thyroid Disorder Medications and Allergies Home Medications Medication Instructions Recorded Confirmed Type Pnv No.95/Ferrous Fum/Folic AC 1 each PO DAILY 05/18/21 11/14/24 History [ Multivitamin Tablet] Enoxaparin [Lovenox] 40 mg SQ Q24HR 11/14/24 11/14/24 History Allergies Allergy/AdvReac Type Severity Reaction Status Date / Time amoxicillin Allergy Rash/Hives Verified 11/14/24 14:04 Exam Intake and Output 11/14/24 11/14/24 11/14/24 06:59 14:59 22:59 Other: Weight 96.162 kg In general, this is a well-developed, well-nourished white female in some discomfort as she is in active labor. Her heart has a regular rhythm and rate without murmur. Her lungs are clear to auscultation bilaterally in all bautista. Her abdomen is gravid, nondistended, is soft, nontender, and without any palpable masses aside from the uterine fundus. Her extremities are without any cyanosis, clubbing, or significant edema and are nontender to palpation bilaterally. Cervical examination performed by the nursing staff demonstrates her cervix to be 6 cm dilated, 90 to 100% effaced, with the vertex and presentation at -2 station. Results Result Diagrams: 11/14/24 14:36 Abnormal Lab Results - Last 24 Hours (Table) 11/14/24 Range/Units 14:36 WBC 14.28 H (4.50-10.00) 10*3/uL RBC 4.02 L (4.10-5.20) 10*6/uL Hgb 10.4 L (12.0-15.0) g/dL Hct 33.0 L (37.2-46.3) % MCH 25.9 L (27.0-32.0) pg MCHC 31.5 L (32.0-37.0) g/dL Immature Gran # 0.16 H (0.00-0.04) 10*3/uL Neutrophils # 10.85 H (1.80-7.70) 10*3/uL Monocytes # 1.16 H (0.20-1.00) 10*3/uL Assessment and Plan (1) Family planning Current Visit: Yes Status: Acute Code(s): Z30.09 - ENCOUNTER FOR OT GENERAL CNSL AND ADVICE ON CONTRACEPTION SNOMED Code(s): 494974262 (2) Previous section Current Visit: Yes Status: Acute Code(s): Z98.891 - HISTORY OF UTERINE SCAR FROM PREVIOUS SURGERY SNOMED Code(s): 458479936 (3) Active labor at term Current Visit: Yes Status: Acute Code(s): TMT7349 - SNOMED Code(s): 31415762 Plan: The patient is admitted for repeat low-transverse section with intraoperative bilateral salpingectomy, consents have been signed in the office and she has reaffirmed her desire for permanent sterilization today.
--- NOTE | 2024-11-14 16:27 | P.OP ---
Date of Procedure: 11/14/24 Preoperative Diagnosis: #1. 38 and 1 sevenths weeks, active labor #2. Previous section requesting repeat #3. Undesired fertility #4. polyhydramnios Postoperative Diagnosis: Same Procedure(s) Performed: #1. Repeat low-transverse section #2. Intraoperative bilateral salpingectomy Anesthesia: spinal Surgeon: Moo Vincent Electromechanical Equipment Assembler #1: Apple Song Estimated Blood Loss (ml): 597 IV fluids (ml): 500 Urine output (ml): 325 Pathology: none sent Condition: stable Disposition: floor Operative Findings: The patient was taken to the operating room where she underwent repeat low-t ransverse section in an uncomplicated fashion and was delivered of a viable 10 pound 15 ounce baby boy with Apgars of 8 at 1 5 minutes in the occiput anterior position. Placenta was delivered manually, intact, and grossly normal with a grossly normal three-vessel cord uterus, tubes, and ovaries were entirely normal to inspection. There was a loose nuchal cord which was delivered after d elivery of the head and prior to delivery of the body. The bilateral fallopian tubes were removed from their fimbriated end to the cornual insertion and sent as a single specimen to pathology. Description of Procedure: The patient was prepped and draped in usual fashion after spinal anesthesia was administered by the anesthesiologist. A Pfannenstiel incision was made through her pre-existing scar and extended into the abdominal cavity without difficulty. The bladder was significantly distal to the intended site of incision and was left intact. A 2 cm incision was made in the transverse plane of the lower uterine segment to enter the uterus at which time a significant amount of clear fluid was noted. head was delivered up and through the incision after extending the incision in both directions using bandage scissors. The nose and mouth were thoroughly suctioned. A nuchal cord was reduced on the field and the remainder of the infant delivered onto the field with doubly clamped, cut, and the infant passed for resuscitative measures with weight and Apgars as noted. The placenta was delivered manually and intact as noted above. The uterus was exteriorized and the anterior cavity the uterus swept of any remaining placental or membranous fragments. The margins of the uterine incision were grasped with Monsalve clamps and the incision closed in a single running locking stitch of 0 chromic catgut from margin to margin. Your cul-de-sac was suctioned with a guard followed by laparotomy sponge. After ensuring that the patient desired permanent sterilization which she affirmed, the right fallopian tube was removed from the fimbriated end to the cornual insertion with a LigaSure device. A similar operation was carried out on the left side and the tube was placed in a single specimen cup for pathology. Hemostasis was excellent. The uterus was replaced within the abdominal cavity and the gutters were swept of any remaining blood, fluid, or clot. Reexamination of the incision demonstrated excellent hemostasis. The parietal peritoneum was loosely reapproximated and the layer of muscles examined and found to be hemostatic. The fascia was closed with a single running stitch of 0 Vicryl from margin to margin. The subcutaneous tissues were made hemostatic with the Bovie and then reapproximated with a running stitch of 3-0 plain catgut. The skin was reapproximated with a running subcuticular stitch of 4-0 Vicryl from margin to margin followed by half-inch Steri-Strips placed with Mastisol. Quantitative blood loss for the case was 597 mL. There were no complications. All sponge, instrument, and needle counts were correct. The patient tolerated the procedure well and proceeded to the recovery room in stable condition. Both mother and infant are resting comfortably in recovery.
[2024-11-14] MEDS: ACETAMINOPHEN TAB 500 MG TAB PO SCH (20:21)
[2024-11-14] MEDS: SENNOSIDES-DOCUSATE SODIUM 1 EACH TAB PO SCH (20:22)
[2024-11-14] MEDS: ONDANSETRON 4 MG/2 ML VIAL IVP PRN (20:24)
[2024-11-14] MEDS: KETOROLAC 15 MG/ML 1 ML VIAL IVP PRN (23:50)
[2024-11-15 07:27] LABS: Basophils # (A) 0.04 10*3/uL (0.00-0.10); Basophils % (A) 0.3 %; Eosinophils # (A) 0.02 10*3/uL (0.04-0.35); Eosinophils % (A) 0.1 %; HCT 26.5 % (37.2-46.3); Lymphocytes % (A) 14.2 %; MCH 25.5 pg (27.0-32.0); MCHC 30.9 g/dL (32.0-37.0); MCV 82.3 fL (80.0-97.0); Mean Platelet Volume 11.7 fL (9.5-12.2); Monocytes # (A) 1.41 10*3/uL (0.20-1.00); Monocytes % (A) 9.5 %; Neutrophils # (A) 11.08 10*3/uL (1.80-7.70); Platelet Count 163 10*3/uL (140-440); RBC 3.22 10*6/uL (4.10-5.20); RDW 14.9 % (11.5-14.5); WBC 14.79 10*3/uL (4.50-10.00)
[2024-11-15 07:38] LABS: HGB 8.2 g/dL (12.0-15.0)
--- NOTE | 2024-11-15 09:18 | P.PNOBGPC ---
Subjective - Subjective Principal diagnosis: s/p repeat section Interval history: The patient is doing well this morning and had no acute events overnight. She has no complaints this morning. She reports minimal lochia, passing flatus, voiding without difficulty, ambulating, and eating/drinking without nausea or vomiting. She is breast feeding her without difficulty. She denies chest pain, shortness of breathing, fevers, or chills overnight. She denies pain or swelling in the legs. Patient reports: Reports appetite normal, Reports voiding normally, Reports pain well controlled, Reports ambulating normally [place]: doing well, nursing well Objective - Vital Signs Latest vital signs: Vital Signs Temp Pulse Resp BP Pulse Ox 11/15/24 08:00 98.5 F 65 16 110/62 98 11/15/24 00:00 93 16 115/75 11/14/24 20:00 84 16 129/72 11/14/24 18:12 96.9 F L 98 18 119/77 100 11/14/24 17:57 92 18 118/70 99 11/14/24 17:42 91 18 118/68 100 11/14/24 17:27 95 18 117/63 100 11/14/24 17:12 70 18 114/61 98 11/14/24 16:57 82 18 121/61 97 11/14/24 16:42 98 18 119/62 97 11/14/24 16:27 105 H 18 115/63 98 11/14/24 16:12 97.1 F L 98 18 114/56 97 11/14/24 15:00 98.1 F 118 H 20 125/82 98 11/14/24 14:21 98.1 F 118 H 18 125/82 98 Intake and Output 11/14/24 11/15/24 11/15/24 22:59 06:59 14:59 Intake Total 800 Output Total 952 400 500 Balance -952 400 -500 Intake: Oral 800 Output: Urine 225 400 500 Straight 400 Output, Quantitative 727 Blood Loss Other: # Voids 1 Weight 96.162 kg - Exam Extremities: Present: normal Abdomen: Present: normal appearance, soft Incision: Present: normal, dry, intact Uterus: Present: normal, firm - Labs Labs: Abnormal Lab Results - Last 24 Hours (Table) 11/14/24 11/15/24 Range/Units 14:36 06:28 WBC 14.28 H 14.79 H (4.50-10.00) 10*3/uL RBC 4.02 L 3.22 L (4.10-5.20) 10*6/uL Hgb 10.4 L 8.2 L D (12.0-15.0) g/dL Hct 33.0 L 26.5 L (37.2-46.3) % MCH 25.9 L 25.5 L (27.0-32.0) pg MCHC 31.5 L 30.9 L (32.0-37.0) g/dL Immature Gran # 0.16 H 0.14 H (0.00-0.04) 10*3/uL Neutrophils # 10.85 H 11.08 H (1.80-7.70) 10*3/uL Monocytes # 1.16 H 1.41 H (0.20-1.00) 10*3/uL Eosinophils # 0.02 L (0.04-0.35) 10*3/uL Assessment and Plan Assessment: 29 year old now POD#1 s/p repeat section Plan: 1. Post-operative. Patient meeting milestones appropriately. 2. Acute Blood Loss Anemia. PO ferrous sulfate qLUNCH ordered. 3. Viable male infant. Doing well at bedside, will need circumcision prior to discharge. Dispo: Anticipate discharge home tomorrow.
[2024-11-15] MEDS: ENOXAPARIN 40 MG/0.4 ML SYRINGE SQ SCH (10:45)
--- NOTE | 2024-11-15 11:28 | P.PN ---
Progress Note - Text Adequate analgesia. No anesthetic complications.
[2024-11-15] MEDS: FERROUS SULFATE 325 MG TAB PO SCH (13:02)
[2024-11-15] MEDS: IBUPROFEN 800 MG TAB PO SCH (17:20)
[2024-11-15] MEDS: ACETAMINOPHEN TAB 500 MG TAB PO SCH (21:13)
[2024-11-16] MEDS ORDERED: IBUPROFEN 800 MG TAB PO SCH (04:00)
[2024-11-16 08:20] VITALS: BP 124/81; PULSE 65; RESP 16; TEMP 98.5
--- NOTE | 2024-11-16 12:31 | P.DS ---
Providers Date of admission: 11/14/24 14:30 Expected date of discharge: 11/16/24 Attending physician: Moo Vincent Primary care physician: Stated None - Discharge Diagnosis(es) (1) Family planning Current Visit: Yes Status: Acute (2) Previous section Current Visit: Yes Status: Acute (3) Active labor at term Current Visit: Yes Status: Acute (4) Status post section Current Visit: Yes Status: Acute Hospital Course: The patient is a 29-year-old 2 para 1-0-0-1 admitted at 39 and 1 sevenths weeks by good dating parameters. She is admitted in active labor with all signs reassuring, category 1 heart rate tracing. Her has a history of a previous section she requested repeat with intraoperative bilateral salpingectomy. Deep vein thrombosis for which she has been on prophylaxis with Lovenox subcutaneously daily during the . She additionally was found to have polyhydramnios in the third trimester and had reassuring testing weekly thereafter. Group B strep status is negative. Labor and delivery, she was taken to the operating room where she underwent low-transverse section in an uncomplicated fashion with intraoperative bilateral salpingectomy. Delivered of a viable 10 pound 15 ounce baby boy with Apgars of 8 at 1 minute 5 minutes. Operative course were u nremarkable with vital signs remaining stable and her temperature was afebrile throughout. She was deemed stable for discharge on postoperative day #2 and was discharged home to follow-up in the office in 2 weeks for an incision check and 6 weeks routinely. Discharge instructions included calling for any significantly increased bleeding or foul-smelling lochia, significantly increased fever or abdominal pain, perineal complaints, breast complaints, incisional complaints, or anything else that concerned her. She was additionally instructed to have nothing in the vagina for at least 6 weeks time to include intercourse. She was instructed to do no heavy lifting over the same period of time. She was lastly instructed to do no driving until off of all pain medications or 2 weeks time, whichever came first. She understood her instructions and agrees to follow-up as noted above. Discharge medications included continued vitamins as she has opted to breast-feed. She was otherwise instructed to use [id number] analgesic pain medications and iron sulfate daily for at least 1 month to rebuild her hemoglobin. Was provided a prescription for oxycodone 5 mg, 1-2 p.o. every 6 hours as needed pain, #20 dispensed with no refills. Maternal blood type is A+ and rubella status is immune. Discharge hemoglobin and hematocrit were 8.2 and 26.5 respectively. Procedures: #1. Repeat low-transverse section #2. Intraoperative bilateral salpingectomy Patient Condition at Discharge: Stable Plan - Discharge Summary New Discharge Prescriptions: No Action Pnv No.95/Ferrous Fum/Folic AC [ Multivitamin Tablet] 1 each PO DAILY Enoxaparin [Lovenox] 40 mg SQ Q24HR Discharge Medication List Pnv No.95/Ferrous Fum/Folic AC [ Multivitamin Tablet] 1 each PO DAILY 05/18/21 [History] Enoxaparin [Lovenox] 40 mg SQ Q24HR 11/14/24 [History] Follow up Appointment(s)/Referral(s): Moo Vincent MD [STAFF PHYSICIAN] - 2 Weeks Discharge Disposition: HOME SELF-CARE
--- NOTE | 2024-12-18 13:05 | CDI ---
Documentation Clarification Form Date: 12/18/2024 12:54:33 PM From: Juliet Nolen Phone: Admit Date: 11/14/2024 02:30:00 PM Patient Name: Brooke Parra Visit Number: [id number] Discharge Date: 11/16/2024 02:20:00 PM ATTENTION: The Clinical Documentation Specialists (CDI) and [facility] Coding Staff appreciate your assistance in clarifying documentation. Please respond to the clarification below the line at the bottom and electronically sign. The CDI & [facility] Coding staff will review the response and follow-up if needed. Please note: Queries are made part of the Legal Health Record. If you have any questions, please contact the author of this message via ITS. Doctor/Provider: Moo Vincent Acute Blood Loss Anemia is documented per Procedure Note 11/15. Additional specificity regarding the cause of anemia is requested. History/Risk Factors: 29yo F, polyhydramnios, prior C/S, undesired fertility Clinical indicators: Hemoglobin: 11/14 10.4 11/15 8.2 Hematocrit: 11/14 33.0 11/15 26.5 Treatment: PO ferrous sulfate q lunch ordered. Please clarify the etiology and timing of anemia: Timing of anemia [ ] Present on admission [ x ] Note present on admission Etiology [ x ] Acute blood loss anemia [ ] Acute on chronic blood loss anemia [ ] Chronic blood loss anemia [ ] Iron deficiency anemia [ ] Clinically insignificant [ ] Unable to determine [ ] Other, please specify (Template Last Revised: June 2020) MTDD
== END 2024-11-16 14:20 | disposition home or self-care (01) | DRG 784 ==
LOC: FBPOP 14:01 → 4FBP 14:30
PROVIDERS: ADMIT Obstetrics & Gynecology; ATTEND Obstetrics & Gynecology
PROC: 0UB70ZZ Excision of Bilateral Fallopian Tubes, Open Approach (ICD-10-PCS; 2024-11-14)
PROC: 10D00Z1 Extraction of Products of Conception, Low, Open Approach (ICD-10-PCS; principal; 2024-11-14 15:15)
DX: O34.211 Maternal care for low transverse scar from previous cesarean delivery (principal); D62 Acute posthemorrhagic anemia; O40.3XX0 Polyhydramnios, third trimester, not applicable or unspecified; O90.81 Anemia of the puerperium; O69.81X0 Labor and delivery complicated by cord around neck, without compression, not applicable or unspecified; Z37.0 Single live birth; Z86.718 Personal history of other venous thrombosis and embolism; Z3A.38 38 weeks gestation of pregnancy; Z30.2 Encounter for sterilization
CPT/HCPCS: 59025; 85025; 86850; 86900; 86901; 88302; 99213